=== PATIENT | female | born 1990 | race Caucasian/White ===

== ENCOUNTER 2018-05-19 10:08 | Emergency (ER) | payer OTHER ==
[~2018-05-19] VITALS: Ht 172.7 cm; Wt 93.0 kg
[2018-05-19 10:11] VITALS: BP 136/80
--- NOTE | 2018-05-19 10:19 | NUR ---
28F BIB SELF C/O 6/10 CONSTANT "PRESSURE" FRONTAL HEADACHE X 2 DAYS. PT STATES HER HEADACHE HAS GOTTEN WORST TODAY. PT STS MOTRIN HELPS WITH LITTLE RELIEF. + DIZZINESS, - BLURRY VISION , -N/V/D, -PHOTOPHIA, OR HEAD INJURY. PT IS AOX4 TO PERSON, PLACE, TIME, AND SITUATION. RR ARE EVEN AND UNLABORED. VSS. NAD. AWAITING ER MD MOSER. WILL CONTINUE TO MONITOR.
--- NOTE | 2018-05-19 10:32 | NUR ---
er md bernal by bedside examining pt
[2018-05-19] MEDS ORDERED: KETOROLAC 60 MG/2 ML VIAL IM ONE (10:35)
[2018-05-19 11:15] VITALS: BP 124/79
== END 2018-05-19 11:14 | disposition home or self-care (01) ==
LOC: MED 10:08
DX: R51 Headache (principal)
CPT/HCPCS: 81002; 81025; 96372; 99283; J1885

== ENCOUNTER 2019-09-04 11:16 | Inpatient (IN) | payer OTHER ==
[~2019-09-04] VITALS: Ht 172.7 cm; Wt 94.3 kg
[2019-09-04 11:19] VITALS: BP 119/68
--- NOTE | 2019-09-04 11:31 | NUR ---
Patient ambulated to bed 4. RN evaluating patient at bedside.
--- NOTE | 2019-09-04 11:36 | NUR ---
29 Y/O FEMALE PRESENTS TO ER FOR ABNORMAL LAB OF 5.3. PT WAS SEEN AT [facility] WEDNESDAY FOR BLOOD DRAW DUE TO INCREASE IN FATIGUE. DENIES PAIN. DENIES N/V/D. STATES SHE HAS FELT MORE FATIGUE X 1 WK. HAS NOT TAKEN MEDICATION TODAY. LMP 07/23/2019. HOB ELEVATED, X 1 SIDE RAIL RAISED, BED LOCKED AND IN LOW POSITION. VSS MEDHX: DENIES ALLERGIES: ROBYNA
--- NOTE | 2019-09-04 11:38 | NUR ---
Dr. Betts is evaluating the patient at bedside.
--- NOTE | 2019-09-04 11:41 | NUR ---
20G IV PLACED TO LT AC, LABS DRAWN AT THIS TIME.
[2019-09-04 11:59] LABS: EOSINOPHILS # (AUTO) 0.1 K/uL (0-0.4); MONOCYTES # (AUTO) 0.3 K/uL (0.8-1.0); RED CELL DISTRIBUTION WIDTH 22.4 % (11.6-13.7)
[2019-09-04 12:02] LABS: BASOPHILS % (AUTO) 0.8 % (0.0-2.0); EOSINOPHILS % (AUTO) 1.1 % (0.0-4.0); LYMPHOCYTES # (AUTO) 2.2 K/uL (2.5-16.5); LYMPHOCYTES % (AUTO) 38.4 % (20.5-51.1); MEAN CORPUSCULAR HEMOGLOBIN 14 pg (27-31); MEAN CORPUSCULAR HGB CONC 26 g/dL (33-37); MEAN CORPUSCULAR VOLUME 54.6 fL (80-94); MONOCYTES % (AUTO) 5.6 % (1.7-9.3); NEUTROPHILS # (AUTO) 3.1 K/uL (1.8-7.7); NEUTROPHILS % (AUTO) 54.1 % (42.2-75.2); PLATELET COUNT (AUTO) 284 K/uL (140-450); WHITE BLOOD COUNT (AUTO) 5.8 K/uL (4.8-10.8)
[2019-09-04 12:13] LABS: ALBUMIN 3.5 g/dL (3.4-5.0); ANION GAP 13.3 (8-16); CARBON DIOXIDE 23.3 mmol/L (21-32); CREATININE 0.9 mg/dL (0.6-1.3); POTASSIUM 3.6 mmol/L (3.5-5.1); TOTAL BILIRUBIN 0.4 mg/dL (0.0-1.0)
[2019-09-04 12:27] LABS: HEMOGLOBIN 5.2 g/dL (12.0-16.0)
[2019-09-04 12:31] LABS: RED BLOOD CELL COUNT(AUTO) 3.66 MIL/uL (4.20-5.40)
--- NOTE | 2019-09-04 13:00 | NUR ---
COVERING PRIMARY RN FOR LUNCH RELIEF. NO DISTRESS NOTED. DISCUSSED PLAN TO ADMIT. ALL QUESTIONS ANSWERED.
--- NOTE | 2019-09-04 13:11 | NUR ---
Dr. Tim is evaluating the patient at bedside.
--- NOTE | 2019-09-04 13:24 | NUR ---
APatient will be admitted to care of DR PERSON. Admited to MED/SURG. Will go to room 105B. Belongings list completed. Report to BALJINDER ROSS.
[2019-09-04 13:30] VITALS: BP 121/70
--- NOTE | 2019-09-04 13:30 | NUR ---
PATIENT ARRIVED FROM ER VIA WHEELCHAIR. NO DISTRESS NOTED. DENIES ANY PAIN. AAOX4, CALM, COOPERATIVE, SKIN COLOR APPROPRIATE TO ETHNICITY, SKIN INTACT. IV SITE INTACT, PATENT, AND INFUSING IVF PER MD ORDERS. ORIENTED PATIENT TO ROOM AND CALL LIGHT. REVIEWED PLAN OF CARE WITH PATIENT. WILL CONTINUE TO MONITOR.
--- NOTE | 2019-09-04 14:00 | NUR ---
PAGED DR. PERSON FOR ADMIT ORDERS. ADMIT ORDERS RECEIVED. WILL CONTINUE TO MONITOR.
--- NOTE | 2019-09-04 14:15 | NUR ---
ARIELLE FROM LAB CALLED, SAID THAT THEY HAVE TO ORDER THE BLOOD, ABOUT 2 HOURS IT WILL TAKE. PATIENT ASYMPTOMATIC, NO ACTIVE BLEEDING. NOTIFIED MD ROOSEVELT OK. WILL CONTINUE TO MONITOR.
--- NOTE | 2019-09-04 15:00 | NUR ---
RADIAL DRILL PRESS OPERATOR FOR PLASTIC AT BEDSIDE. WILL CONTINUE TO MONITOR.
[2019-09-04 16:00] VITALS: BP 110/65
--- NOTE | 2019-09-04 19:00 | NUR ---
1 UNIT PRBC STARTED. WILL CONTINUE TO MONITOR.
--- NOTE | 2019-09-04 19:20 | NUR ---
GAVE REPORT TO ENTRY LEVEL SALES ASSOCIATE NURSE FOR CONTINUITY OF CARE. PATIENT IN STABLE CONDITION.
--- NOTE | 2019-09-04 19:21 | NUR ---
RECEIVED BEDSIDE REPORT FROM DAY SHIFT NURSECODY. PT HAVING BLOOD TRANSFUSION. NO DISTRESS NOTED. DENIES ANY PAIN. AAOX4, CALM, COOPERATIVE, SKIN INTACT, WARM AND DRY TO TOUCH. IV SITE ON LAC 20G, INTACT, PATENT, AND ASYMPTOMATIC. ORIENTED PATIENT TO ROOM AND CALL LIGHT. REVIEWED PLAN OF CARE WITH PATIENT. WILL CONTINUE TO MONITOR.
--- NOTE | 2019-09-04 22:00 | NUR ---
1ST UNIT OF BLOOD TRANSFUSION DONE. NO REACTION NOTED.
--- NOTE | 2019-09-04 22:30 | NUR ---
2ND UNIT OF BLOOD TRANSFUSION STARTED. PT TOLERATED. NO REACTION NOTED.
[2019-09-05] VITALS: BP 108/52
--- NOTE | 2019-09-05 00:15 | NUR ---
VS CHECKED, WITHIN PT'S BASELINE. WILL CONTINUE TO MONITOR.
--- NOTE | 2019-09-05 02:00 | NUR ---
2ND UNIT OF BLOOD TRANSFUSION DONE. NO REACTION NOTED.
[2019-09-05 04:08] LABS: EOSINOPHILS # (AUTO) 0.1 K/uL (0-0.4); HEMATOCRIT 23.6 % (36-48); MEAN CORPUSCULAR VOLUME 61.4 fL (80-94); NEUTROPHILS # (AUTO) 4.1 K/uL (1.8-7.7); RED BLOOD CELL COUNT(AUTO) 3.85 MIL/uL (4.20-5.40)
--- NOTE | 2019-09-05 04:18 | NUR ---
PT SLEEPING IN BED COMFORTABLY. NO ACUTE DISTRESS NOTED.
[2019-09-05 04:20] LABS: BASOPHILS # (AUTO) 0.1 K/uL (0.00-0.22); BASOPHILS % (AUTO) 0.7 % (0.0-2.0); LYMPHOCYTES # (AUTO) 3.6 K/uL (2.5-16.5); LYMPHOCYTES % (AUTO) 43.1 % (20.5-51.1); MEAN CORPUSCULAR HEMOGLOBIN 18 pg (27-31); MEAN CORPUSCULAR HGB CONC 30 g/dL (33-37); MONOCYTES # (AUTO) 0.5 K/uL (0.8-1.0); MONOCYTES % (AUTO) 6.3 % (1.7-9.3); NEUTROPHILS % (AUTO) 48.9 % (42.2-75.2); PLATELET COUNT (AUTO) 239 K/uL (140-450); RED CELL DISTRIBUTION WIDTH 30.9 % (11.6-13.7); WHITE BLOOD COUNT (AUTO) 8.4 K/uL (4.8-10.8)
--- NOTE | 2019-09-05 07:05 | NUR ---
RECEIVED REPORT FROM BALJINDER FAJARDO. PT ASLEEP, AROUSABLE, AOX4, NO C/O PAIN. IV ON LT AC 20 GA ON SALINE LOCK. PT ON RA, RESPIRATIONS EVEN AND UNLABORED. ABD SOFT, ACTIVE BS. SKIN IS INTACT, WARM TO TOUCH. REVIEWED POC WITH PT, PT VERBALIZED UNDERSTANDING.
--- NOTE | 2019-09-05 07:20 | NUR ---
ENDORSED PT TO DAY SHIFT NURSE. PT IN STABLE CONDITION.
[2019-09-05 08:00] VITALS: BP 90/51
--- NOTE | 2019-09-05 08:39 | NUR ---
PATIENT HAS BEEN SCREENED AND CATEGORIZED LOW NUTRITION RISK. PATIENT WILL BE SEEN WITHIN 7 DAYS OF ADMISSION. 09/11/[address]
--- NOTE | 2019-09-05 09:30 | NUR ---
PT LYING ON RIGHT LATERAL SIDE. NO S/S OF DISTRESS, RESPIRATIONS EVEN AND UNLABORED ON RA.
--- NOTE | 2019-09-05 10:58 | NUR ---
Senior Manager Note: Basic Screen: Yes High Risk DC Screen [place]: FLACO Cortez Relationship: MOTHER Pre-Admission Living Arrangements: Lives with Other Prior ADL Independent Current Home Health Name/Tel: N/A Current DME/02 Name/Tel: N/A Current Hospice Name/Tel: N/A Current Dialysis Name/Tel: N/A Healthcare Decision Maker: Patient Advance Directive No Physician Orders for Life Sustaining Treatment Form No Patient/Family Have Educational Needs No Information Taught: Advance Directive Person Taught: Patient Teaching Tools: Verbal Factors Affecting Learning: None Participation Level: Refused Evaluation: Verbalizes Understanding Needs Additional Education: No Discipline: Case Mgt/Social Svcs Tentative Discharge Plan/Destination: No Needs Identified Will require assistance post discharge: No Referred to Criminal Defense Lawyer: No Tentative Discharge Plan Summary: Patient is a 29 year old female admitted for anemia/early . Patient has no pertinent PMHX. Patientw as admitted from home where she lives with family. SW met with patient at bedside to verify demographics. Patient stated that her children are being watched by relatives currently. Patient reports no history of substance abuse or mental health. Tentative discharge plan is for patient to return home. No further needs identified. Signature: ULYSSES Agudelo Date: Sep 05, 2019 Time: 10:57
--- NOTE | 2019-09-05 11:10 | NUR ---
NOTIFIED PT THAT DR. PERSON HAS NOT MADE HOSPITAL ROUNDS. WILL CONTINUE TO UPDATE. Addendum: 09/05/19 at 1740 by Beverly Meade RN 09/05/[address] PERSON, PT WAS INSTRUCTED TO AMBULATE IN UNIT AND NOTIFY RN WHEN SYMPTOMS PERSIST DURING ROUNDS THIS MORNING.
--- NOTE | 2019-09-05 13:00 | NUR ---
PT SITTING UP IN BED, EATING LUNCH. PER DR. PERSON'S OFFICE, PHYSICIAN ON HIS WAY TO [facility], PT NOTIFIED.
--- NOTE | 2019-09-05 13:51 | NUR ---
DISCHARGE PLANNING: THIS IS A 29 Y/O FEMALE PATIENT FROM HOME, WHO CAME IN DUE LOW HEMOGLOBIN OF 5. NO PERTINENT MEDICAL HISTORY. INITIAL DIAGNOSIS OF ANEMIA/EARLY . CURRENT LABS INCLUDE WBC 8.4, H/H 7.0/23.6, HCG 7272. 2 UNITS PRBC TRANSFUSED. MRSA AND URINE C/S PENDING. SEEN BY [facility]. DC PLAN PENDING ON PATIENT'S RESPONSE TO TREATMENT.
--- NOTE | 2019-09-05 14:30 | NUR ---
PT GIVEN 1 PITCHER OR WATER PER REQUEST. PT HAS NO S/S OF DISTRESS AT THIS TIME.
--- NOTE | 2019-09-05 15:00 | NUR ---
PER DR. PERSON, PT NEEDS TO AMBULATE AROUND UNIT, REPORT ABSENCE OR PRESENCE OF SYMPTOMS.
[2019-09-05 16:00] VITALS: BP 111/54
--- NOTE | 2019-09-05 16:10 | NUR ---
PT AMBULATING WITH STEADY GAIT, NO S/S OF DISTRESS.
--- NOTE | 2019-09-05 16:40 | NUR ---
PT AMBULATING WITH STEADY GAIT, TOLERATING WELL.
--- NOTE | 2019-09-05 16:50 | NUR ---
PER DR. PERSON, PT MAY BE DISCHARGED TODAY WITH INSTRUCTIONS TO FOLLOW-UP WITHIN 5-7 DAYS UPON DISCHARGE.
[2019-09-05] MEDS ORDERED: FERR-252 PO (17:04)
[2019-09-05] MEDS ORDERED: DOCU-299 PO (17:05)
--- NOTE | 2019-09-05 17:30 | NUR ---
PT IS DISCHARGED. DISCHARGE INSTRUCTIONS GIVEN, QUESTIONS ANSWERED AND CLARIFIED. PT'S BELONGINGS AT SIDE. IV DISCONTINUED WITH CANNULA INTACT. WRISTBANDS REMOVED. OFFERED WHEELCHAIR, BUT PT REFUSED, WALKING WITH STEADY GAIT, DIRECTOR FIELD SERVICES GILBERT AT SIDE. PT IS IN STABLE CONDITION.
== END 2019-09-05 17:30 | disposition home or self-care (01) | DRG 566 ==
LOC: MED 11:16 → MTU 13:07
PROVIDERS: ADMIT Obstetrics & Gynecology; ATTEND Obstetrics & Gynecology
PROC: 30233N1 Transfusion of Nonautologous Red Blood Cells into Peripheral Vein, Percutaneous Approach (ICD-10-PCS; principal; 2019-09-04)
DX: O99.012 Anemia complicating pregnancy, second trimester (principal); D64.9 Anemia, unspecified; Z3A.27 27 weeks gestation of pregnancy; N91.2 Amenorrhea, unspecified
CPT/HCPCS: 36415; 36430; 76801; 80053; 84702; 85025; 86886; 86900; 86901; 86920; 87081; 87086; 87186; 99285; J7030; P9016; Q0092

== ENCOUNTER 2020-11-12 10:04 | Emergency (ER) | payer OTHER ==
[~2020-11-12] VITALS: Ht 172.7 cm; Wt 102.5 kg
[~2020-11-12 10:04] MED LIST: DOCU-299 PO; FERR-252 PO
[2020-11-12 10:07] VITALS: BP 123/60
--- NOTE | 2020-11-12 10:16 | NUR ---
LOBBY. HNED ON URINE CUP.
--- NOTE | 2020-11-12 10:54 | NUR ---
PATIENT AMBULATED TO ER BED 05
--- NOTE | 2020-11-12 11:04 | NUR ---
30/F presents to ED with c/o nausea and fatigue. Patient states since she has woken up yesterday morning she has felt increasingly more fatigued. Patient states she also began having periods of nausea starting yesterday but denies abdominal pain, vomiting or diarrhea. Patient denies any pain at this, denies taking anything at home for nausea, denies dysuria or hematuria. Patient states she was able to eat and drink yesterday but has not been able to eat or drink today. Patient alert and oriented x4, answering questions appropriately, placed in gown.
[2020-11-12 12:21] LABS: BASOPHILS % (AUTO) 0.1 % (0.0-2.0); EOSINOPHILS % (AUTO) 0.4 % (0.0-4.0); HEMOGLOBIN 10.2 g/dL (12.0-16.0); LYMPHOCYTES # (AUTO) 0.9 K/uL (2.5-16.5); LYMPHOCYTES % (AUTO) 9.3 % (20.5-51.1); MEAN CORPUSCULAR HEMOGLOBIN 22 pg (27-31); MEAN CORPUSCULAR HGB CONC 32 g/dL (33-37); MEAN CORPUSCULAR VOLUME 69.5 fL (80-94); MONOCYTES # (AUTO) 0.4 K/uL (0.8-1.0); MONOCYTES % (AUTO) 4.3 % (1.7-9.3); NEUTROPHILS # (AUTO) 8.2 K/uL (1.8-7.7); NEUTROPHILS % (AUTO) 85.9 % (42.2-75.2); PLATELET COUNT (AUTO) 269 K/uL (140-450); RED BLOOD CELL COUNT(AUTO) 4.61 MIL/uL (4.20-5.40); RED CELL DISTRIBUTION WIDTH 16.9 % (11.6-13.7); WHITE BLOOD COUNT (AUTO) 9.5 K/uL (4.8-10.8)
[2020-11-12 12:29] LABS: PROTHROMBIN TIME 10.5 secs (10.8-13.4)
[2020-11-12 12:31] LABS: ALBUMIN 3.5 g/dL (3.4-5.0); CARBON DIOXIDE 21.9 mmol/L (21-32); CREATININE 0.8 mg/dL (0.6-1.3); POTASSIUM 3.9 mmol/L (3.5-5.1); TOTAL BILIRUBIN 0.5 mg/dL (0.0-1.0)
[2020-11-12 13:23] VITALS: BP 123/60
--- NOTE | 2020-11-12 13:24 | NUR ---
Patient discharged with v/s stable. Written and verbal after care instructions given and explained. Patient verbalized understanding. Ambulatory with steady gait. All questions addressed prior to discharge. Advised to follow up with PMD.
== END 2020-11-12 13:24 | disposition home or self-care (01) ==
LOC: MED 10:04
DX: D64.9 Anemia, unspecified (principal); R43.1 Parosmia; R42 Dizziness and giddiness; Z98.890 Other specified postprocedural states
CPT/HCPCS: 36415; 80053; 81002; 81025; 85025; 85610; 85730; 86886; 86900; 86901; 93005; 99285

== ENCOUNTER 2022-12-01 23:30 | Emergency (ER) | payer OTHER ==
[~2022-12-01] VITALS: Ht 175.3 cm; Wt 98.4 kg
[2022-12-01 23:44] VITALS: BP 141/80; PULSE 68; RESP 16; TEMP 97.8; O2SAT 98
--- NOTE | 2022-12-01 23:47 | NUR ---
TO LOBBY A/W BED AMBULATORY
--- NOTE | 2022-12-02 00:24 | NUR ---
RECEIVED IN BED 11 WITH C/O NUMBNESS ON HER FACE FOR 4 DAYS
[2022-12-02] MEDS ORDERED: [UNRECOGNIZED DRUG - CODE] OP (00:53)
[2022-12-02] MEDS ORDERED: PRED20TA5 PO (00:53)
[2022-12-02] MEDS ORDERED: VALA1TAB40 PO (00:53)
[2022-12-02 01:15] VITALS: BP 141/80; PULSE 68; RESP 16; TEMP 97.8; O2SAT 98
--- NOTE | 2022-12-02 01:15 | NUR ---
Patient discharged with v/s stable. Written and verbal after care instructions given and explained. Patient alert, oriented and verbalized understanding of instructions. Ambulatory with steady gait. All questions addressed prior to discharge. ID band removed. Patient advised to follow up with PMD. Rx of PREDNISONE, TETRAHYDROLZOLINE EYE GTTS. VALACYCYCLOVIR given. Patient educated on indication of medication including possible reaction and side effects. Opportunity to ask questions provided and answered.
== END 2022-12-02 01:15 | disposition home or self-care (01) ==
LOC: MED 23:30
DX: G51.0 Bell's palsy (principal); Z79.899 Other long term (current) drug therapy
CPT/HCPCS: 99283